=== PATIENT | male | born 1945 | race Two or more races ===

== ENCOUNTER 2016-10-14 07:35 | Emergency (ER) | payer SELFPAY ==
[2016-10-14 08:04] VITALS: BP 141/87
--- NOTE | 2016-10-14 09:56 | Emergency Department Report ---
ED General Adult HPI - General Chief complaint: Upper Respiratory Infection Stated complaint: GENERAL SICKNESS Time Seen by Provider: 10/14/16 09:10 Source: early interventionist Mode of arrival: Ambulatory Limitations: No Limitations - History of Present Illness Initial comments: Patient presents today with decreased sleep and "nervousness". He denies pain, shortness of breath, nausea, vomiting, abdominal pain. To me he does not complain of feeling bad. He is only [place]-speaking and I used [employer] translate to communicate. It was attempted the early interventionist that was previously used, but we were unable to. We also attempted to get the language line and also was unable to. -: Gradual Severity scale (0 -10): 0 Associated Symptoms: denies other symptoms - Related Data Previous Rx's Medication Instructions Recorded Last Taken Type Diphenhydramine HCl [Nighttime 12.5 mg PO DAILY PRN #7 capsule 10/14/16 Unknown Rx Sleep Aid] ED Review of Systems ROS: Stated complaint: GENERAL SICKNESS Other details as noted in HPI Constitutional: denies: chills, fever ENT: denies: ear pain, throat pain Respiratory: denies: cough, shortness of breath, wheezing Cardiovascular: denies: chest pain, palpitations Gastrointestinal: denies: abdominal pain, nausea, diarrhea Genitourinary: denies: urgency, dysuria Musculoskeletal: denies: back pain, joint swelling, arthralgia Skin: denies: rash, lesions Neurological: as per HPI, other (insomnia, nervousness) Psychiatric: anxiety. denies: depression ED Past Medical Hx - Past Medical History Previous Medical History?: No - Surgical History Past Surgical History?: Yes Additional Surgical History: Corneal replacement - Social History Smoking Status: Never Smoker Substance Use Type: None - Medications Home Medications: Home Medications Medication Instructions Recorded Confirmed Last Taken Type Diphenhydramine HCl [Nighttime 12.5 mg PO DAILY PRN #7 capsule 10/14/16 Unknown Rx Sleep Aid] ED Physical Exam - General Limitations: No Limitations General appearance: alert, in no apparent distress - Head Head exam: Present: atraumatic, normocephalic - Eye Eye exam: Present: normal appearance - ENT ENT exam: Present: mucous membranes moist - Neck Neck exam: Present: normal inspection, full ROM - Respiratory Respiratory exam: Present: normal lung sounds bilaterally. Absent: respiratory distress - Cardiovascular Cardiovascular Exam: Present: regular rate, normal rhythm. Absent: systolic murmur, diastolic murmur, rubs, gallop - GI/Abdominal GI/Abdominal exam: Present: soft, normal bowel sounds - Extremities Exam Extremities exam: Present: normal inspection - Back Exam Back exam: Present: normal inspection - Neurological Exam Neurological exam: Present: alert, oriented X3 - Psychiatric Psychiatric exam: Present: normal affect, normal mood - Skin Skin exam: Present: warm, dry, intact, normal color. Absent: rash ED Course Vital Signs 10/14/16 07:37 Temperature 98.0 F Pulse Rate 71 Respiratory 14 Rate Blood Pressure 141/87 Blood Pressure 141/87 [Left] O2 Sat by Pulse 100 Oximetry ED Medical Decision Making - Medical Decision Making Patient presents with insomnia and possibly anxiety. He has no other complaints , his physical exam is negative. I will give him Benadryl to take at night for 7 days. I have discussed with him and his friend that he needs to obtain a primary care physician to address these complaints. - Differential Diagnosis insomnia, depression, anxiety Critical Care Time: No Critical care attestation.: If time is entered above; I have spent that time in minutes in the direct care of this critically ill patient, excluding procedure time. ED Disposition Clinical Impression: Insomnia Disposition: DISCHARGED TO HOME OR SELFCARE Is pt being admited?: No Does the pt Need Aspirin: No Condition: Stable Instructions: Insomnia (ED) Prescriptions: Diphenhydramine HCl [Nighttime Sleep Aid] 12.5 mg PO DAILY PRN #7 capsule PRN Reason: Insomnia Referrals: PRIMARY CARE, [Primary Care Provider] - 3-5 Days [facility] [Outside] - 3-5 Days Time of Disposition: 09:58
== END 2016-10-14 10:02 | disposition home or self-care (01) ==
LOC: ED 07:35
DX: G47.09 Other insomnia (principal)
CPT/HCPCS: 99282